=== PATIENT | female | born 1970 | race African-American/Black ===

== ENCOUNTER 2021-07-24 10:31 | Emergency (ER) | payer MEDICARE ==
[~2021-07-24] VITALS: Ht 162.6 cm; Wt 104.3 kg
[2021-07-24] MEDS ORDERED: CARVEDILOL25 MG PO (10:45)
[2021-07-24] MEDS ORDERED: NAPROXEN500 MG PO (10:46)
[2021-07-24] MEDS ORDERED: PROTONIX 20 MG20 MG PO (10:46)
[2021-07-24] MEDS ORDERED: MECLIZINE HCL25 M1 PO (13:25)
[2021-07-24 13:30] VITALS: BP 153/80
== END 2021-07-24 13:30 | disposition home or self-care (01) ==
LOC: ER 10:31
DX: H81.10 Benign paroxysmal vertigo, unspecified ear (principal); Z20.822 Contact with and (suspected) exposure to COVID-19; T78.8XXA Other adverse effects, not elsewhere classified, initial encounter; I10 Essential (primary) hypertension; F17.210 Nicotine dependence, cigarettes, uncomplicated; Z79.899 Other long term (current) drug therapy; Z88.8 Allergy status to other drugs, medicaments and biological substances